=== PATIENT | female | born 1985 | race Caucasian/White ===

== ENCOUNTER 2016-12-05 19:05 | Emergency (ER) | payer MEDICAID ==
[~2016-12-05] VITALS: Ht 167.6 cm; Wt 86.6 kg
[~2016-12-05 19:05] MED LIST: IBUP-1542 PO; MULT-552 PO
[2016-12-05 19:25] VITALS: Ht 167.6 cm; Wt 86.6 kg
--- NOTE | 2016-12-05 19:53 | ERD ---
ER Documentation Chief Complaint Date/Time DATE: 12/05/16 TIME: 19:50 Chief Complaint dog bite to left hand at 1300 HPI Is a 31-year-old female who presents the emergency department today complaining of a dog bite to her left hand. 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 She is not up-to-date on her vaccines. Denies any previous trauma, fevers or chills. ROS All systems reviewed and are negative except as per history of present illness. Medications Home Meds Active Scripts Amoxicillin/Potassium Clav (Amox-Clav 875-125 mg Tablet) 875-125 mg Tab, 1 TAB PO BID for 7 Days, #14 TAB Prov:JOANNE WHITE PA-C 12/05/16 Acetaminophen* (Tylophen*) 500 Mg Capsule, 1 CAP PO Q6H Y for PAIN AND OR ELEVATED TEMP, #30 CAP Prov:JOANNE WHITEC 12/05/16 Ibuprofen* (Motrin*) 600 Mg Tab, 600 MG PO Q6, #30 TAB Prov:JOANNE WHITEC 12/05/16 Ibuprofen* (Motrin*) 600 Mg Tab, 600 MG PO Q6H Y for PAIN AND OR ELEVATED TEMP, #30 TAB Prov:ELSA RAMOS NP 08/18/15 Reported Medications Multivitamins* (Once Daily*) 1 Tab Tablet, 1 TAB PO DAILY, TAB 02/18/15 Allergies Allergies: Coded Allergies: No Known Drug Allergy (Verified Allergy, Unknown, 12/05/16) PMhx/Soc Medical and Surgical Hx: pt denies Medical Hx History of Surgery: Yes (c/section x1, laparoscopic) Anesthesia Reaction: No Hx Neurological Disorder: No Hx Respiratory Disorders: No Hx Cardiac Disorders: No Hx Psychiatric Problems: No Hx Miscellaneous Medical Probl: No Hx Alcohol Use: No Hx Substance Use: No Hx Tobacco Use: No Smoking Status: Never smoker Physical Exam Vitals Vital Signs Date Time Temp Pulse Resp B/P Pulse Ox O2 Delivery O2 Flow Rate FiO2 12/05/16 19:25 98.6 79 20 121/72 100 Physical Exam Const: No acute distress Head: Atraumatic Eyes: Normal Conjunctiva ENT: Normal External Ears, Nose and Mouth. Neck: Full range of motion..~ No meningismus. Resp: Clear to auscultation bilaterally Cardio: Regular rate and rhythm, no murmurs Abd: Soft, non tender, non distended. Normal bowel sounds Skin: Left hand thenar eminence with evidence of superficial dog bite and mild blood. No erythema or warmth. MSK: Left hand with no obvious deformity. No effusion. No ecchymosis. Evidence of superficial dog bite. Pulses 2+. Distal neurovascularly intact. Full active range of motion of thumb. Nontender palpation thumb. Neur: Awake and alert Psych: Normal Mood and Affect Results 24 hrs Current Medications Medications (Trade) Dose Ordered Sig/Sofia Route PRN Reason Start Time Stop Time Status Last Admin Dose Admin Diphtheria/ Tetanus/Acell Pertussis (Adacel) 0.5 ml ONCE ONCE IM* 12/05/16 20:00 12/05/16 20:01 DC 12/05/16 19:57 Ibuprofen (Motrin) 600 mg ONCE ONCE PO 12/05/16 20:00 12/05/16 20:01 DC 12/05/16 19:57 Procedures/MDM This a 31-year-old female presents the emergency department today for a dog bite that she sustained earlier today while cleaning a house. Patient has evidence of a superficial dog bite over her thenar eminence of her left hand. She does have full active range of motion of her thumb and is nontender on the bones of her thumb is able to oppose all of her fingers. Low suspicion for acute fracture dislocation. I do not feel that she requires imaging at this time.. There is no erythema or warmth. Patient symptoms at this time is consistent with dog bite. She is not up-to-date on her tetanus. She was given a tetanus here in the emergency department as well as Motrin. Patient's wounds were explained here in the emergency department. I will give her prescription for Augmentin, Tylenol and Motrin. She was instructed to return in 48 hours for wound check if no improvement in symptoms or worsening of symptoms. At this time the patient is stable for discharge and outpatient management. Patient should follow up with their PCP in the next 1-2 days. They may return to the emergency department sooner for any persistent or worsening of symptoms. Patient understood and agreed with the plan. Departure Diagnosis: Primary Impression: Dog bite Encounter type: initial encounter Qualified Code: W54.0XXA - Dog bite, initial encounter Condition: JOANNE Perez PA-C Dec 05, 2016 19:53
[2016-12-05] MEDS ORDERED: DIPHTH/TET/ACEL PERTUSS (ADULT) 0.5 ML VIAL IM* ONE (20:00)
[2016-12-05] MEDS ORDERED: IBUPROFEN 600 MG TAB PO ONE (20:00)
[2016-12-05] MEDS ORDERED: IBUP-1542 PO (20:01)
[2016-12-05] MEDS ORDERED: ACET500C5 PO (20:02)
[2016-12-05] MEDS ORDERED: AMOX1TAB10 PO (20:02)
== END 2016-12-05 20:25 | disposition home or self-care (01) ==
LOC: FTE 19:05
DX: S61.452A Open bite of left hand, initial encounter (principal); W54.0XXA Bitten by dog, initial encounter; Y92.009 Unspecified place in unspecified non-institutional (private) residence as the place of occurrence of the external cause; Z23 Encounter for immunization
CPT/HCPCS: 90471; 90715; Z7502; Z7610

== ENCOUNTER 2017-01-12 21:13 | Emergency (ER) | payer MEDICAID ==
[~2017-01-12] VITALS: Ht 167.6 cm; Wt 87.5 kg
[~2017-01-12 21:13] MED LIST changes: +ACET500C5 PO; +AMOX1TAB10 PO
[2017-01-12 21:22] VITALS: Ht 167.6 cm; Wt 87.5 kg
--- NOTE | 2017-01-12 23:26 | ERD ---
ER Documentation Chief Complaint Date/Time DATE: 01/12/17 TIME: 23:25 Chief Complaint vag bleeding w/ back pain x week HPI 31-year-old female presents here in emergency department for complaints of vaginal bleeding for one, patient discussed obtaining a spotting. Patient is complaining of lower back pain with this. Sharp pains 4/10 scale, not better or worse with anything. Patient noticed abdominal area to be bloating and bigger. 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 Patient wants this to be checked. Patient denies any dizziness. ROS All systems reviewed and are negative except as per history of present illness. Medications Home Meds Active Scripts Amoxicillin/Potassium Clav (Amox-Clav 875-125 mg Tablet) 875-125 mg Tab, 1 TAB PO BID for 7 Days, #14 TAB Prov:JOANNE WHITEC 12/05/16 Acetaminophen* (Tylophen*) 500 Mg Capsule, 1 CAP PO Q6H Y for PAIN AND OR ELEVATED TEMP, #30 CAP Prov:JOANNE WHITE PA-C 12/05/16 Ibuprofen* (Motrin*) 600 Mg Tab, 600 MG PO Q6, #30 TAB Prov:JOANNE WHITE PA-C 12/05/16 Ibuprofen* (Motrin*) 600 Mg Tab, 600 MG PO Q6H Y for PAIN AND OR ELEVATED TEMP, #30 TAB Prov:ELSA RAMOS [employer] 08/18/15 Reported Medications Multivitamins* (Once Daily*) 1 Tab Tablet, 1 TAB PO DAILY, TAB 02/18/15 Allergies Allergies: Coded Allergies: No Known Drug Allergy (Verified Allergy, Unknown, 12/05/16) PMhx/Soc History of Surgery: Yes (c/section x1, laparoscopic) Anesthesia Reaction: No Hx Neurological Disorder: No Hx Respiratory Disorders: No Hx Cardiac Disorders: No Hx Psychiatric Problems: No Hx Miscellaneous Medical Probl: No Hx Alcohol Use: No Hx Substance Use: No Hx Tobacco Use: No FmHx Family History: No coronary disease, No diabetes, No other Physical Exam Vitals Vital Signs Date Time Temp Pulse Resp B/P Pulse Ox O2 Delivery O2 Flow Rate FiO2 01/12/17 21:22 98.5 86 20 135/90 100 Physical Exam GENERAL: The patient is well developed and appropriate for usual state of health, in no apparent distress. CHEST: Clear to auscultation bilaterally. There are no rales, wheezes or rhonchi. HEART: Regular rate and rhythm. No murmurs, clicks, rubs or gallops. No S3 or S4. ABDOMEN: Soft, nontender and nondistended. Good bowel sounds. No rebound or guarding. No gross peritonitis. No gross organomegaly or masses. No Gamez sign or McBurney point tenderness. BACK: No midline or flank tenderness. EXTREMITIES: Equal pulses bilaterally. There is no peripheral clubbing, cyanosis or edema. No focal swelling or erythema. Full range of motion. Grossly neurovascularly intact. NEURO: Alert and oriented. Cranial nerves 2-12 intact. Motor strength in all 4 extremities with 5/5 strength. Sensation grossly intact. Normal speech and gait. SKIN: There is no apparent rash or petechia. The skin is warm and dry. HEMATOLOGIC AND LYMPHATIC: There is no evidence of excessive bruising or lymphedema. No gross cervical, axillary, or inguinal lymphadenopathy. Result Diagram: 01/12/17232901/12/17 2330 Results 24 hrs Laboratory Tests Test 01/12/17 23:30 White Blood Count 9.710^3/ul Red Blood Count 4.1810^6/ul Hemoglobin 12.5g/dl Hematocrit 37.4% Mean Corpuscular Volume 89.5fl Mean Corpuscular Hemoglobin 29.9pg Mean Corpuscular Hemoglobin Concent 33.4g/dl Red Cell Distribution Width 13.2% Platelet Count 78233^3/UL Mean Platelet Volume 10.5fl Neutrophils % 53.7% Lymphocytes % 37.1% Monocytes % 6.0% Eosinophils % 2.2% Basophils % 0.6% Nucleated Red Blood Cells % 0.0/100WBC Neutrophils # 5.210^3/ul Lymphocytes # 3.610^3/ul Monocytes # 0.610^3/ul Eosinophils # 0.210^3/ul Basophils # 0.110^3/ul Nucleated Red Blood Cells # 0.010^3/ul Urine Color STRAW Urine Clarity CLEAR Urine pH 7.0 Urine Specific [place] 1.012 Urine Ketones NEGATIVEmg/dL Urine Nitrite NEGATIVEmg/dL Urine Bilirubin NEGATIVEmg/dL Urine Urobilinogen NEGATIVEmg/dL Urine Leukocyte Esterase 2+Maribel/ul Urine Microscopic RBC 0/HPF Urine Microscopic WBC 5/HPF Urine Squamous Epithelial Cells FEW/HPF Urine Hemoglobin NEGATIVEmg/dL Urine Glucose NEGATIVEmg/dL Urine Total Protein NEGATIVEmg/dl Sodium Level 143mmol/L Potassium Level 3.7mmol/L Chloride Level 101mmol/L Carbon Dioxide Level 24mmol/L Anion Gap 22 Blood Urea Nitrogen 16mg/dl Creatinine 0.69mg/dl Glucose Level 91mg/dl Calcium Level 9.8mg/dl Total Bilirubin 0.1mg/dl Direct Bilirubin 0.00mg/dl Indirect Bilirubin 0.1mg/dl Aspartate Amino Transf (AST/SGOT) 24IU/L Alanine Aminotransferase (ALT/SGPT) 39IU/L Alkaline Phosphatase 67IU/L Total Protein 8.1g/dl Albumin 4.5g/dl Globulin 3.60g/dl Albumin/Globulin Ratio 1.25 Lipase 60U/L PROCEDURE: ULTRASOUND EVALUATION OF THE FEMALE PELVIS: CLINICAL INDICATION: 31 years of age, female, spotting. COMPARISON: None. TECHNIQUE: Real-time sonographic images of the pelvis were obtained transabdominally and transvaginally utilizing pinon scale, color, and Doppler imaging. FINDINGS: LMP: December 18, 2016 Uterus: Appearance: Normal. Position: Anteverted. Size: 8.7 x 4.7 x 6.8 cm. (144 ml) Endometrial stripe: 6.6 mm. Right ovary and adnexa: Size: 3.4 x 2.2 x 2.2 cm. (Volume 8.5 mL) Appearance: Normal morphology. No masses. Arterial and venous flow present. Left ovary and adnexa: Left ovary is not visualized. Negative for mass in the left adnexa. Free fluid: None IMPRESSION: 1. Uterus and endometrium appear normal for a premenopausal patient. Recommend correlation with serum beta HCG to rule out . If there is clinical concern for an endometrial polyp, the patient may benefit from a non urgent hysterosonogram. 2. The left ovary is not visualized. Negative for evidence of left adnexal mass. RPTAT: HCTS Physician Tony Date Time Electronically viewed and signed by Physician Tony on 01/13/2017 00: 09 CS/ CC: JOSH SAUL [employer] PROCEDURE: CT abdomen and pelvis without intravenous contrast. CLINICAL INDICATION: Pain. TECHNIQUE: CT of the abdomen/pelvis was performed utilizing axial images with reconstructions in sagittal and coronal planes. The administered radiation dose is CTDI 17 mGy, DLP 999 mGy-cm. COMPARISON: No pertinent prior examinations were submitted for comparison. FINDINGS: Visualized Chest: A calcified granuloma is noted in the right lower lobe. Abdomen: The spleen, pancreas, gallbladder,and adrenal glands are unremarkable. The liver is markedly, diffusely decreased in attenuation, compatible with hepatic steatosis. The kidneys are without hydronephrosis. No definite urinary calculi are seen. There is no evidence of bowel obstruction. The appendix is not seen. There is no evidence of acute appendicitis. No intra-abdominal free air is seen. Some increased formed stool is noted throughout the colon. There is no evidence of intra-abdominal adenopathy or free fluid. Pelvis: There is no evidence of pelvic adenopathy. The uterus and ovaries are without enlargement. The urinary bladder is unremarkable. There is trace pelvic free fluid. Osseous structures: Unremarkable. IMPRESSION: No acute findings. Hepatic steatosis. RPTAT: HIKT .Anselmo Lal MD, MD Date Time Electronically viewed and signed by .Anselmo Lal MD, MD on 01/13/2017 01:44 .T/ CC: JOSH SAUL [employer] Procedures/MDM Medical Decision Making: Patient's lower back pain and vaginal bleeding nonspecific at this time, possible can be from dysfunctional uterine bleeding. Bleeding is controlled, only more of a spotting, hemoglobin and hematocrit is stable at this time. No noted. There is low suspicion for abdominal emergencies at this time. Patients abdominal exam is normal at this time. Patients radiology exam does not show any abdominal emergencies at this time. There is low suspicion for appendicitis, cholecystitis, abdominal aortic aneurysms or peritonitis at this time. There is low suspicion for sepsis. Patient appears well and is hemodynamically stable. Disposition: Home. Condition: Stable Prescription ibuprofen, Tylenol, ferrous sulfate Instructions: Patient is advised to take medications as prescribed. Patient is advised to rest, increase fluid intake and see OB doctor for further evaluation and symptoms. Patient is advised that if symptoms are worse, severe abdominal pain, uncontrolled vomiting, high fever, severe flank pain, worst signs and symptoms, to return to the emergency department immediately. Otherwise, patient can follow up with primary care doctor in 5-7 days. Departure Diagnosis: Primary Impression: Vaginal bleeding Additional Impression: Abdominal pain Abdominal location: lower abdomen, unspecified Qualified Code: R10.30 - Lower abdominal pain Condition: Stable Patient Instructions: Dysfunctional Uterine Bleeding Additional Instructions: Patient is advised to take medications as prescribed. Patient is advised to rest, increase fluid intake and see OB doctor for further evaluation and symptoms. Patient is advised that if symptoms are worse, severe abdominal pain, uncontrolled vomiting, high fever, severe flank pain, worst signs and symptoms, to return to the emergency department immediately. Otherwise, patient can follow up with primary care doctor in 5-7 days. JOSH SAUL NP Jan 12, 2017 23:26
[2017-01-12 23:57] LABS: BASOPHIL # 0.1 10^3/ul (0.0-0.1); BASOPHILS % 0.6 % (0.0-2.0); EOSINOPHILS # 0.2 10^3/ul (0.0-0.5); EOSINOPHILS % 2.2 % (0.0-7.0); HEMATOCRIT 37.4 % (37.0-47.0); HEMOGLOBIN 12.5 g/dl (12.0-16.0); LYMPHOCYTES # 3.6 10^3/ul (0.8-2.9); LYMPHOCYTES % 37.1 % (15.0-51.0); MEAN CORPUSCULAR HEMOGLOBIN 29.9 pg (29.0-33.0); MEAN CORPUSCULAR HGB CONC 33.4 g/dl (32.0-37.0); MEAN CORPUSCULAR VOLUME 89.5 fl (82.0-101.0); MEAN PLATELET VOLUME 10.5 fl (7.4-10.4); MONOCYTE # 0.6 10^3/ul (0.3-0.9); NEUTROPHIL # 5.2 10^3/ul (1.6-7.5); NEUTROPHILS % 53.7 % (39.0-77.0); PLATELET COUNT 259 10^3/UL (140-415); RED BLOOD COUNT 4.18 10^6/ul (4.20-5.40); RED CELL DISTRIBUTION WIDTH 13.2 % (11.5-14.5); WHITE BLOOD COUNT 9.7 10^3/ul (4.8-10.8)
--- NOTE | 2017-01-13 00:09 | RADRPT ---
PROCEDURE: ULTRASOUND EVALUATION OF THE FEMALE PELVIS: CLINICAL INDICATION: 31 years of age, female, spotting. COMPARISON: None. TECHNIQUE: Real-time sonographic images of the pelvis were obtained transabdominally and transvagina lly utilizing pinon scale, color, and Doppler imaging. FINDINGS: LMP: December 18, 2016 Uterus: Appearance: Normal. Position: Anteverted. Size: 8.7 x 4.7 x 6.8 cm. (144 ml) Endometrial stripe: 6.6 mm. Right ovary and adnexa: Size: 3.4 x 2.2 x 2.2 cm. (Volume 8.5 mL) Appearance: Normal morphology. No masses. Arterial and venous flow present. Left ovary and adnexa: Left ovary is not visualized. Negative for mass in the left adnexa. Free fluid: None IMPRESSION: 1. Uterus and endometrium appear normal for a premenopausal patient. Recommend correlation with serum beta HCG to rule out . If there is clinical concern for an endometrial polyp, the pa tient may benefit from a non urgent hysterosonogram. 2. The left ovary is not visualized. Negative for evidence of left adnexal mass. RPTAT: HCTS Physician Tony Date Time Electronically viewed and signed by Physician Tony on 01/13/2017 00:09 /
[2017-01-13 00:36] LABS: ALBUMIN 4.5 g/dl (3.3-4.9); ALBUMIN/GLOBULIN RATIO 1.25; BILIRUBIN,INDIRECT 0.1 mg/dl (0-1.1); BILIRUBIN,TOTAL 0.1 mg/dl (0.2-1.3); CALCIUM 9.8 mg/dl (8.4-10.2); CREATININE 0.69 mg/dl (0.44-1.00); POTASSIUM 3.7 mmol/L (3.5-5.1); TOTAL PROTEIN 8.1 g/dl (6.1-8.1)
[2017-01-13 00:39] LABS: ADD UMIC YES; UR ASCORBIC ACID NEGATIVE (NEGATIVE); UR BILIRUBIN (Dip) NEGATIVE (NEGATIVE); UR BLOOD (Dip) NEGATIVE (NEGATIVE); UR CLARITY CLEAR (CLEAR); UR COLOR STRAW (YELLOW); UR GLUCOSE (Dip) NEGATIVE (NEGATIVE); UR KETONES (Dip) NEGATIVE (NEGATIVE); UR LEUKOCYTE ESTERASE (Dip) 2+ Leu/ul (NEGATIVE); UR NITRITE (Dip) NEGATIVE (NEGATIVE); UR RBC 0 /HPF (0-5); UR SPECIFIC GRAVITY (Dip) 1.012 (1.003-1.030); UR SQUAMOUS EPITHELIAL CELL FEW /HPF (FEW); UR TOTAL PROTEIN (Dip) NEGATIVE (NEGATIVE); UR UROBILINOGEN (Dip) NEGATIVE (NEGATIVE)
--- NOTE | 2017-01-13 01:45 | RADRPT ---
PROCEDURE: CT abdomen and pelvis without intravenous contrast. CLINICAL INDICATION: Pain. TECHNIQUE: CT of the abdomen/pelvis was performed utilizing axial images with reconstructions in s agittal and coronal planes. The administered radiation dose is CTDI 17 mGy, DLP 999 mGy-cm. COMPARISON: No pertinent prior examinations were submitted for comparison. FINDINGS: Visualized Chest: A calcified granuloma is noted in the right lower lobe. Abdomen: The spleen, pancreas, gallbladder,and adrenal glands are unremarkable. The liver is markedly, dif fusely decreased in attenuation, compatible with hepatic steatosis. The kidneys are without hydronephrosis. No definite urinary calculi are seen. There is no evidence of bowel obstruction. The appendix is not seen. There is no evidence of acute appendicitis. No intra-abdominal free air is seen. Some increased formed stool is noted throughou t the colon. There is no evidence of intra-abdominal adenopathy or free fluid. Pelvis: There is no evidence of pelvic adenopathy. The uterus and ovaries are without enlargement. The uri nary bladder is unremarkable. There is trace pelvic free fluid. Osseous structures: Unremarkable. IMPRESSION: No acute findings. Hepatic steatosis. RPTAT: HIKT .Anselmo Lal MD, MD Date Time Electronically viewed and signed by .Anselmo Lal MD, MD on 01/13/2017 01:44 .T/
[2017-01-13] MEDS ORDERED: TRAM50TA2 PO (01:53)
[2017-01-13] MEDS ORDERED: IBUP-1542 PO (01:53)
[2017-01-13] MEDS ORDERED: FER325 PO (01:53)
[2017-01-13 02:14] VITALS: BP 115/77; PULSE 62; RESP 17; TEMP 98.3
== END 2017-01-13 02:14 | disposition home or self-care (01) ==
LOC: FTE 21:13
DX: N93.8 Other specified abnormal uterine and vaginal bleeding (principal); R10.30 Lower abdominal pain, unspecified
CPT/HCPCS: 36415; 74176; 76830; 76856; 80053; 81001; 83690; 85025; Z7502

== ENCOUNTER 2017-08-22 12:32 | Emergency (ER) | END 2017-08-22 17:30 | disposition home or self-care (01) ==

== ENCOUNTER 2018-07-11 19:46 | Emergency (ER) | payer MEDICAID ==
[~2018-07-11] VITALS: Ht 167.6 cm; Wt 89.0 kg
[~2018-07-11 19:46] MED LIST changes: -ACET500C5 PO; -AMOX1TAB10 PO; +CEPH-443 PO; -IBUP-1542 PO; -MULT-552 PO; +ONDA4TAB8 PO
[2018-07-11 20:11] VITALS: Ht 167.6 cm; Wt 89.0 kg
[2018-07-11] MEDS ORDERED: ACETAMINOPHEN 325 MG TAB PO ONE (22:00)
--- NOTE | 2018-07-11 22:07 | ERD ---
ER Documentation Chief Complaint Chief Complaint back/pelvic pain; LLQ ab pain, LMP 2 weeks ago HPI 33-year-old female complaining of nausea, vomiting, abdominal bloating, and headache times 1 week. Patient reports positive home test 1 week ago. 2 days ago, she noticed blood during bowel movement. States that it was fresh blood. She started having left-sided pelvic pain since then. Today, she did home test again twice. Both times were negative. Patient still feel bloated with headache and nausea, but no longer vomiting. 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 Prior to that started on 05/30/2018. In addition, patient states that she has been constipated the, and has been taking fiber supplements. Denies fever or chills. Denies abdominal pain, or diarrhea. Denies dysuria. ROS All systems reviewed and are negative except as per history of present illness. Medications Home Meds Active Scripts Doxycycline Hyclate* (Doxycycline Hyclate*) 100 Mg Tablet.dr, 100 MG PO BID for 10 Days, TAB Prov:ELSA RAMOS STRIKE OFF MACHINE OPERATOR 07/12/18 Docusate Sodium* (Colace*) 100 Mg Capsule, 100 MG PO DAILY, #30 CAP Prov:ELSA RAMOS. STRIKE OFF MACHINE OPERATOR 07/12/18 Magnesium Citrate* (Magnesium Citrate*) 296 Ml Solution, 296 ML PO ONCE, #1 BOTTLE Prov:ELSA RAMOS. STRIKE OFF MACHINE OPERATOR 07/12/18 Ibuprofen* (Motrin*) 600 Mg Tab, 600 MG PO Q6H PRN for PAIN AND OR ELEVATED TEMP, #30 TAB Prov:ELSA RAMOS. STRIKE OFF MACHINE OPERATOR 07/12/18 Ondansetron Hcl* (Zofran*) 4 Mg Tablet, 4 MG PO Q6H for NAUSEA AND/OR VOMITING, #15 TAB Prov:VENTURA GONG MD 08/22/17 Cephalexin* (Keflex*) 500 Mg Capsule, 500 MG PO QID for 5 Days, CAP Prov:VENTURA GONG MD 08/22/17 Allergies Allergies: Coded Allergies: No Known Drug Allergy (Verified Allergy, Unknown, 12/05/16) PMhx/Soc Medical and Surgical Hx: pt denies Medical Hx, pt denies Surgical Hx History of Surgery: No Anesthesia Reaction: No Hx Neurological Disorder: No Hx Respiratory Disorders: No Hx Cardiac Disorders: No Hx Psychiatric Problems: No Hx Miscellaneous Medical Probl: No Hx Alcohol Use: No Hx Substance Use: No Hx Tobacco Use: No Smoking Status: Never smoker Physical Exam Vitals Vital Signs Date Temp Pulse Resp B/P (MAP) Pulse Ox O2 O2 Flow FiO2 Time Delivery Rate 07/12/18 98.2 72 18 92/52 (65) 99 Room Air 04:09 07/11/18 99.0 80 18 119/70 100 20:11 (86) Physical Exam General: Well-developed, well-nourished, conscious and coherent, in no distress Skin: Warm and dry without rash, good texture and turgor Head: Normocephalic without evidence of trauma Chest: Normal AP diameter. Good expansion without retractions. Nontender. Lungs are clear to auscultate bilaterally with good tidal volume Heart: Regular rate and rhythm. No murmur, rub, or gallops heard Abdomen: Soft and nontender without masses, guarding, or rebound. Bowel sounds are active. No hepatosplenomegaly Back: Without spinal or CVA tenderness Pelvis: Left pelvic tenderness : External genitalia without lesions or masses. Vaginal vault clear. Cervix normal, positive cervical motion tenderness. Uterus nontender and normal size. No adnexal tenderness or masses noted. Extremities: Full range of motion. Good strength bilaterally. No erythema, ecchymosis, or edema. Peripheral pulses are intact. Sensation intact Neuro: Alert and oriented 4, GCS 15. Result Diagram: 07/12/18 0146 07/12/18 0146 Results 24 hrs Laboratory Tests Test 07/11/18 21:30 07/11/18 21:33 07/11/18 21:34 07/11/18 21:44 Urine Color YELLOW Urine Clarity CLOUDY Urine pH 6.0 Urine Specific 1.021 [place] Urine Ketones NEGATIVE mg/dL Urine Nitrite NEGATIVE mg/dL Urine Bilirubin NEGATIVE mg/dL Urine Urobilinogen NEGATIVE mg/dL Urine Leukocyte 1+ Maribel/ul Esterase Urine Microscopic 11 /HPF RBC Urine Microscopic 14 /HPF WBC Urine Squamous MODERATE /HPF Epithelial Cells Urine Mucus FEW /HPF Urine Hemoglobin 1+ mg/dL Urine Glucose NEGATIVE mg/dL Urine Total Protein NEGATIVE mg/dl Bedside Urine pH 7.0 (LAB) Bedside Urine Trace Protein (LAB) Bedside Urine Negative Glucose (UA) Bedside Urine Negative Ketones (LAB) Bedside Urine Blood 2+ Bedside Urine Negative Nitrite (LAB) Bedside Urine Trace Leukocyte Esterase (L POC Beta HCG, NEGATIVE Qualitative White Blood Count 8.6 10^3/ul Red Blood Count 4.22 10^6/ul Hemoglobin 12.2 g/dl Hematocrit 38.2 % Mean Corpuscular 90.5 fl Volume Mean Corpuscular 28.9 pg Hemoglobin Mean Corpuscular 31.9 g/dl Hemoglobin Concent Red Cell 13.8 % Distribution Width Platelet Count 265 10^3/UL Mean Platelet 10.3 fl Volume Immature 0.500 % Granulocytes % Neutrophils % 56.4 % Lymphocytes % 34.3 % Monocytes % 6.0 % Eosinophils % 2.3 % Basophils % 0.5 % Nucleated Red Blood 0.0 /100WBC Cells % Immature 0.040 10^3/ul Granulocytes # Neutrophils # 4.9 10^3/ul Lymphocytes # 3.0 10^3/ul Monocytes # 0.5 10^3/ul Eosinophils # 0.2 10^3/ul Basophils # 0.0 10^3/ul Nucleated Red Blood 0.0 10^3/ul Cells # Beta HCG, < 2.4 mIU/ml Quantitative Test 07/12/18 01:46 White Blood Count 9.4 10^3/ul Red Blood Count 4.05 10^6/ul Hemoglobin 11.7 g/dl Hematocrit 36.1 % Mean Corpuscular 89.1 fl Volume Mean Corpuscular 28.9 pg Hemoglobin Mean Corpuscular 32.4 g/dl Hemoglobin Concent Red Cell 13.8 % Distribution Width Platelet Count 238 10^3/UL Mean Platelet 10.1 fl Volume Immature 0.500 % Granulocytes % Neutrophils % 58.4 % Lymphocytes % 32.9 % Monocytes % 5.5 % Eosinophils % 2.1 % Basophils % 0.6 % Nucleated Red Blood 0.0 /100WBC Cells % Immature 0.050 10^3/ul Granulocytes # Neutrophils # 5.5 10^3/ul Lymphocytes # 3.1 10^3/ul Monocytes # 0.5 10^3/ul Eosinophils # 0.2 10^3/ul Basophils # 0.1 10^3/ul Nucleated Red Blood 0.0 10^3/ul Cells # Sodium Level 140 mmol/L Potassium Level 4.1 mmol/L Chloride Level 107 mmol/L Carbon Dioxide 25 mmol/L Level Anion Gap 8 Blood Urea Nitrogen 17 mg/dl Creatinine 0.56 mg/dl Est Glomerular > 60 mL/min Filtrat Rate mL/min Glucose Level 92 mg/dl Calcium Level 9.3 mg/dl Current Medications Medications Dose Sig/Sofia Start Time Status Last (Trade) Ordered Route PRN Stop Time Admin Dose Reason Admin 650 mg ONCE ONCE 07/11/18 DC 07/11/18 Acetaminophen PO 22:00 07/11/18 21:45 (Tylenol 22:01 Tab) Sodium 100 ml @ ud STK-MED 07/12/18 DC Chloride ONCE .ROUTE 00:41 07/12/18 00:42 Iohexol 150 ml STK-MED 07/12/18 DC (Omnipaque ONCE .ROUTE 00:41 07/12/18 300mg/ ml) 00:42 Ceftriaxone 250 mg ONCE ONCE 07/12/18 DC 07/12/18 Sodium IM 04:00 07/12/18 04:01 (Rocephin) 04:01 PROCEDURE: US Pelvis. CLINICAL INDICATION: Pelvic pain, left side TECHNIQUE: Multiple sonographic images of the pelvis were obtained utilizing a transabdominal and endovaginal technique. The images were reviewed on a PACS workstation. COMPARISON: Pelvic ultrasound 01/12/2017. CT abdomen and pelvis 01/13/2017 FINDINGS: Uterus: Normal in size, contour and echogenicity with no evidence for myometrial masses. Size is estimated at 8.6 x 6.5 x 4.8 cm. Cervix: No abnormalities of significance are seen. Endometrium: Normal in thickness for the patient's age; 16.4 mm. Right ovary / adnexa: Normal in size estimated at 3 x 2.1 x 1.6 cm. No evidence for masses, normal blood flow on Doppler interrogation. Left ovary/adnexa: The ovary is not visualized. There is no evidence of adnexal mass or free fluid. Cul-de-sac: Small amount of free fluid is likely physiologic. RPTAT:HJJR IMPRESSION: 1. Small amount of free fluid in the pelvic cul-de-sac is likely physiologic. 2. The left ovary is not visualized. 3. Otherwise unremarkable examination. Physician Carolyn Date Time Electronically viewed and signed by Physician Carolyn on 07/12/2018 00:07 JR/ CC: ELSA RAMOS NP PROCEDURE: CT Abdomen and Pelvis with contrast. CLINICAL INDICATION: Pelvic pain TECHNIQUE: CT scan of the abdomen and pelvis with contrast was performed on a multi-detector high-resolution CT scanner. The patient was scanned following intravenous administration of 95 mL Omnipaque-300 contrast. Coronal and sagittal reformatted images obtained from the axial source images. Images were reviewed on a high-resolution PACS workstation. Exam CTDI 17.05 mGy Exam DLP 997.09 mGy-cm DICOM images are available. One or more of the following dose reduction techniques were utilized: 1.) Automated exposure control 2.) Adjustment of the mA +/- kV according to patient's size 3.) Use of iterative reconstruction technique. COMPARISON: None. FINDINGS: CT abdomen: LOWER THORAX: Lung bases are clear. LIVER AND GALLBLADDER: There is diminished density throughout the liver consistent with diffuse steatosis and the liver is mildly enlarged. No focal hepatic lesions otherwise demonstrated. The gallbladder is unremarkable. SPLEEN: Normal. PANCREAS: Normal. ADRENAL GLANDS: Normal. KIDNEYS: There are several tiny cortical cysts within the right kidney. The kidneys otherwise enhance symmetrically and there is no hydronephrosis or abnormal perinephric fluid. VASCULATURE: Negative for aortic aneurysm or dissection. LYMPH NODES: No significant retroperitoneal or mesenteric lymphadenopathy. BOWEL AND MESENTERY: Stomach and small bowel are unremarkable. The appendix is not clearly seen. No pericecal inflammatory changes. The proximal large bowel is filled with stool. The colon is otherwise unremarkable. CT pelvis: The urinary bladder is unremarkable. There is trace free fluid in the pelvis. Uterus and adnexal structures appear normal for age. No significant pelvic lymphadenopathy. Bones: Regional bones and superficial soft tissues are grossly unremarkable. IMPRESSION: 1. No definite inflammatory process in the imaged abdomen or pelvis. 2. Trace pelvic free fluid, nonspecific and likely physiologic. 3. Proximal large bowel filled with stool, question constipation. 4. Mildly enlarged fatty infiltrated liver. RPTAT: HJBB Physician Meliza Date Time Electronically viewed and signed by Physician Meliza on 07/12/2018 03:08 xB/ CC: ELSA RAMOS STRIKE OFF MACHINE OPERATOR Procedures/MDM 33-year-old female present ED with left-sided pelvic pain. Patient had one positive home test, and 2 negative tests since. Her beta hCG quant today is less than 2.7, I doubt the patient is . CBC: no e/o of systemic infection or severe anemia BMP: no e/o severe acidosis, alkalosis, renal failure Urine: no e/o acute infection or hematuria Pelvic ultrasound is obtained, however, the ultrasound did not visualize left ovary. I am unable to rule out ovarian torsion. I discussed patient with Dr. Owens, who suggested that we obtain a CT abdomen pelvis with IV contrast. Again, no acute findings are noted on CT, except for proximal large bowel filled with stool, consistent with constipation. Patient is noted to have cervical motion tenderness pelvic exam. It is possible that her pain is due to pelvic inflammatory disease. Rocephin 250 mg IM given to the patient in the ED. Patient will be prescribed doxycycline. Patient also advised to follow-up with PCP or return to ED if her pain does not resolve. Patient appears well, stable for discharge and outpatient management. Medical decision making shared with patient and family. Education provided to patient and family. Patient and family expressed understanding of the plan. Medications on discharge: Ibuprofen, doxycycline, magnesium citrate, docusate sodium. Follow-up: Primary care provider in 2-3 days or return to ED if worse. Disclaimer: Inadvertent spelling and grammatical errors are likely due to EHR/dictation software use and do not reflect on the overall quality of patient care. Also, please note that the electronic time recorded on this note does not necessarily reflect the actual time of the patient encounter. Departure Diagnosis: Primary Impression: Pelvic pain Additional Impression: Constipation Condition: Stable ELSA RAMOS NP Jul 11, 2018 22:07
[2018-07-12] MEDS ORDERED: SOD CHLORIDE 0.9% 100 ML ONE (00:41)
[2018-07-12] MEDS ORDERED: IOHEXOL 300MG/ML 150 ML BTL ONE (00:41)
[2018-07-12] MEDS ORDERED: DOXY100T20 PO (03:43)
[2018-07-12] MEDS ORDERED: IBUP-1542 PO (03:43)
[2018-07-12] MEDS ORDERED: MAGN296S40 PO (03:43)
[2018-07-12] MEDS ORDERED: DOCU-144 PO (03:43)
[2018-07-12] MEDS ORDERED: CEFTRIAXONE 250 MG INJ IM ONE (04:00)
[2018-07-12 04:09] VITALS: BP 92/52; PULSE 72; RESP 18
== END 2018-07-12 04:26 | disposition home or self-care (01) ==
LOC: FTE 19:46
DX: K59.00 Constipation, unspecified (principal); R10.2 Pelvic and perineal pain; R40.2412 Glasgow coma scale score 13-15, at arrival to emergency department
CPT/HCPCS: 74177; 76830; 76856; 80048; 81001; 81025; 84702; 85025; 86900; 86901; J0696; Q9967; Z7610; 36415; 81003; 96372